=== PATIENT | male | born 1985 | race African-American/Black ===

== ENCOUNTER 2018-02-10 15:19 | Emergency (ER) | payer MEDICAID, OTHER ==
[2018-02-10] MEDS ORDERED: ONDANSETRON 4 MG/2 ML VIAL ONE (15:57)
[2018-02-10] MEDS ORDERED: NS 1,000 ML IV ONE ×2 (15:57→16:18)
[2018-02-10] MEDS ORDERED: ONDANSETRON 4 MG/2 ML VIAL IVP ONE ×2 (15:57→16:32)
[2018-02-10] MEDS ORDERED: MAG HYDROX/AL HYDROX/SIMETH 30 ML UDCUP PO ONE (16:18)
[2018-02-10] MEDS ORDERED: FAMOTIDINE 20 MG/NACL 50 ML IV ONE (16:18)
[2018-02-10] MEDS ORDERED: HYOSCYAMINE SULFATE 0.125 MG TAB PO ONE (16:18)
[2018-02-10] MEDS ORDERED: LIDOCAINE 2% VISCOUS 15 ML UDCUP PO ONE (16:18)
--- NOTE | 2018-02-10 16:21 | EDPHY ---
H & P Time Seen by Provider: 02/10/18 16:00 HPI/ROS: CHIEF COMPLAINT: Tabdominal pain HISTORY OF PRESENT ILLNESS: The patient is a 32-year-old male who presents to the emergency department with abdominal pain and vomiting starting on . Patient states his symptoms started after eating any improved but he does not think it is related. Sunday night he vomited all night. His symptoms have slowed slightly but he still has intermittent episodes of nonbloody vomiting throughout the day. No bowel movements or diarrhea. Patient has bandlike upper abdominal pain and this wraps around his back. It is moderate. It feels "like a muscle cramp."Patient has no cough or shortness of breath. It does not radiate into his chest. No fevers or chills. REVIEW OF SYSTEMS: My complete review of systems is negative except as mentioned in the HPI. Past Medical/Surgical History: Denies Social history: Patient uses alcohol and THC daily. Smoking Status: Current every day smoker Physical Exam: Vitals noted GENERAL: Mild acute distress, alert. HEENT: Eyes normal to inspection, normal pharynx, no signs of dehydration. NECK: [No thyromegaly, no lymphadenopathy, supple. RESPIRATORY: Clear to auscultation bilaterally, no rales, rhonchi or wheezing. CVS: Regular rate and rhythm, no rubs, murmurs, or gallops. ABDOMEN: Soft, nontender, nondistended, no organomegaly. Benign BACK: Normal to inspection, no CVA tenderness. SKIN: Normal color, no rash, warm, dry. No pallor. EXTREMITIES: No pedal edema, no calf tenderness, no Homans sign or cords, no joint swelling. NEURO/PSYCH: Alert and oriented, normal mood and affect, normal motor sensory exam. Constitutional: Initial Vital Signs Temperature (C) 36.8 C 02/10/18 15:24 Heart Rate 80 02/10/18 15:24 Respiratory Rate 18 02/10/18 15:24 Blood Pressure 115/84 H 02/10/18 15:24 O2 Sat (%) 99 02/10/18 15:24 O2 Delivery Mode Room Air Allergies/Adverse Reactions: shellfish Allergy (Severe, Uncoded 02/10/18 15:24) Home Medications: Medication Instructions Recorded Ondansetron Odt [Zofran Odt 4 mg 4 mg PO Q4PRN PRN #7 tab 02/10/18 (*)] Medical Decision Making - Diagnostics Imaging Results: Imaging Impressions Chest X-Ray 02/10/18 16:18 Impression: No acute pulmonary disease. ED Course/Re-evaluation: In the emergency department discussed possible etiologies with the patient. I answered all his questions. IV was placed. Patient given normal saline 1 L IV for hydration. He is given Zofran 4 mg IV for nausea. He is given Pepcid 20 mg IV for abdominal discomfort. He is given a GI cocktail. EKG shows normal sinus rhythm, normal rate, normal axis, normal intervals. There are no ST or T-wave abnormalities. EKG is normal as interpreted by me. The patient's white count is elevated 14,000. Patient's chemistry panel is notable for an elevated anion gap at 22. His creatinine is 1.0. His LFTs are normal. Lipase normal. On recheck the patient was still feeling nauseated. The patient was given Phenergan 12.5 mg IV. 1720: On recheck the patient still was feeling nauseated although better. He was noted to have an elevated white count. A CT of the abdomen pelvis was ordered. CT of the abdomen pelvis: Please refer the dictated report by Dr. Prieto. No acute disease noted. 1855: I rechecked the patient. Patient states he feels much better off the medicine but he still has mild nausea. On repeat exam is abdomen was soft, nontender nondistended. I offered him admission for further treatment and evaluation. However the patient refused. Patient was competent. He was asking questions appropriately. He was given warnings prior to leaving. He will return with worsening symptoms. Differential Diagnosis: My differential includes but is not limited to pancreatitis, cholecystitis, gastritis, hiatal hernia, small-bowel obstruction, perforation - Data Points Laboratory Results: Laboratory Results 02/10/18 16:00 02/10/18 16:00 02/10/18 02/10/18 02/10/18 16:00 16:00 16:00 WBC 14.28 10^3/uL H 10^3/uL (3.80-9.50) RBC 5.88 10^6/uL 10^6/uL (4.40-6.38) Hgb 17.4 g/dL g/dL (13.7-17.5) Hct 50.6 % % (40.0-51.0) MCV 86.1 fL fL (81.5-99.8) MCH 29.6 pg pg (27.9-34.1) MCHC 34.4 g/dL g/dL (32.4-36.7) RDW 13.9 % % (11.5-15.2) Plt Count 204 10^3/uL 10^3/uL (150-400) MPV 10.8 fL fL (8.7-11.7) Neut % (Auto) 85.7 % H % (39.3-74.2) Lymph % (Auto) 8.7 % L % (15.0-45.0) [place] % (Auto) 5.1 % % (4.5-13.0) Eos % (Auto) 0.1 % L % (0.6-7.6) Baso % (Auto) 0.1 % L % (0.3-1.7) Nucleat RBC Rel Count 0.0 % % (0.0-0.2) Absolute Neuts (auto) 12.24 10^3/uL H 10^3/uL (1.70-6.50) Absolute Lymphs (auto) 1.24 10^3/uL 10^3/uL (1.00-3.00) Absolute Monos (auto) 0.73 10^3/uL 10^3/uL (0.30-0.80) Absolute Eos (auto) 0.01 10^3/uL L 10^3/uL (0.03-0.40) Absolute Basos (auto) 0.02 10^3/uL 10^3/uL (0.02-0.10) Absolute Nucleated RBC 0.00 10^3/uL 10^3/uL (0-0.01) Immature Gran % 0.3 % % (0.0-1.1) Immature Gran # 0.04 10^3/uL 10^3/uL (0.00-0.10) PT 12.7 SEC SEC (12.0-15.0) INR 0.93 (0.83-1.16) APTT 22.4 SEC L SEC (23.0-38.0) Sodium 141 mEq/L mEq/L (135-145) Potassium 4.0 mEq/L mEq/L (3.5-5.2) Chloride 97 mEq/L mEq/L (97-110) Carbon Dioxide 22 mEq/l mEq/l (22-31) Anion Gap 22 mEq/L H mEq/L (8-16) BUN 18 mg/dL mg/dL (7-23) Creatinine 1.0 mg/dL mg/dL (0.7-1.3) Estimated GFR > 60 Glucose 134 mg/dL H mg/dL (70-100) Calcium 10.2 mg/dL mg/dL (8.5-10.4) Total Bilirubin 1.1 mg/dL mg/dL (0.1-1.4) Conjugated Bilirubin 0.6 mg/dL H mg/dL (0.0-0.5) Unconjugated Bilirubin 0.5 mg/dL mg/dL (0.0-1.1) AST 29 IU/L IU/L (17-59) ALT 41 IU/L IU/L (21-72) Alkaline Phosphatase 89 IU/L IU/L (38-126) Total Protein 8.5 g/dL H g/dL (6.3-8.2) Albumin 5.0 g/dL g/dL (3.5-5.0) Lipase 54 IU/L IU/L (23-300) Medications Given: Discontinued Medications Al Hydroxide/Mg Hydroxide (Maalox Susp) 30 ml PO ONCE ONE Stop: 02/10/18 16:19 Last Admin: 02/10/18 17:28 Dose: 30 ml Hyoscyamine Sulfate (Levsin, Hyomax-Sl) 0.25 mg PO ONCE ONE Stop: 02/10/18 16:19 Last Admin: 02/10/18 17:27 Dose: 0.25 mg Sodium Chloride (Ns) 1,000 mls @ 0 mls/hr IV ONCE ONE PRN Reason: Wide Open Stop: 02/10/18 15:58 Last Admin: 02/10/18 15:59 Dose: 1,000 mls Sodium Chloride (Ns) 1,000 mls @ 0 mls/hr IV EDNOW ONE; Wide Open PRN Reason: Protocol Stop: 02/10/18 16:19 Last Admin: 02/10/18 16:34 Dose: 1,000 mls Famotidine/Sodium Chloride (Pepcid 20 Mg (Premix)) 50 mls @ 200 mls/hr IV EDNOW ONE Stop: 02/10/18 16:32 Last Admin: 02/10/18 16:29 Dose: 50 mls Lidocaine (Lidocaine 2% Viscous) 15 ml PO ONCE ONE Stop: 02/10/18 16:19 Last Admin: 02/10/18 17:28 Dose: 15 ml Ondansetron HCl (Zofran) 4 mg IVP EDNOW ONE Stop: 02/10/18 15:58 Last Admin: 02/10/18 15:59 Dose: 4 mg Ondansetron HCl (Zofran) 4 mg IVP EDNOW ONE Stop: 02/10/18 16:33 Last Admin: 02/10/18 16:33 Dose: 4 mg Promethazine HCl (Phenergan) 12.5 mg IVP ONCE ONE Stop: 02/10/18 16:57 Last Admin: 02/10/18 17:00 Dose: 12.5 mg Departure - Departure Disposition: Home, Routine, Self-Care Clinical Impression: Abdominal pain Qualifiers: Abdominal location: upper abdomen, unspecified Qualified Code(s): R10.10 - Upper abdominal pain, unspecified Condition: Good Instructions: Abdominal Pain (ED) Additional Instructions: Return with increasing pain, repeated vomiting, fever, or any other concerns. Referrals: Scotty Gaspar, [Medical Doctor] - 2-3 days, if not improved Prescriptions: Ondansetron Odt [Zofran Odt 4 mg (*)] 4 mg PO Q4PRN PRN #7 tab PRN Reason: For Nausea & Vomiting
[2018-02-10 16:27] LABS: PLATELET COUNT 204 10^3/uL (150-400)
--- NOTE | 2018-02-10 16:35 | CPEKG ---
Heart Rate: 52 RR Interval: 1154 P-R Interval: 132 QRSD Interval: 82 QT Interval: 452 QTC Interval: 421 P [place]: 74 QRS [place]: 77 T Wave [place]: 52 EKG Severity - BORDERLINE ECG - EKG Impression: SINUS RHYTHM EKG Impression: PROBABLE LEFT ATRIAL ABNORMALITY Electronically Signed By: Arvin Avilez 12-Feb-2018 07:25:09
[2018-02-10 16:37] LABS: INR 0.93 (0.83-1.16); PROTIME(PATIENT) 12.7 SEC (12.0-15.0)
[2018-02-10] MEDS ORDERED: PROMETHAZINE HCL 25 MG/ML INJ IVP ONE (16:56)
[2018-02-10] MEDS ORDERED: IOPAMIDOL (ISOVUE-300) 100 ML BTL ONE (17:42)
[2018-02-10] MEDS ORDERED: ONDANSETRON 4MG PREPACK#2 BTL TAKEHOME ONE (19:00)
[2018-02-10 19:18] VITALS: BP 119/69
== END 2018-02-10 19:16 | disposition home or self-care (01) ==
DX: R10.10 Upper abdominal pain, unspecified (principal); E86.9 Volume depletion, unspecified; F17.200 Nicotine dependence, unspecified, uncomplicated
CPT/HCPCS: 96365; J2405; J2550; Q9967

== ENCOUNTER 2018-02-12 01:29 | Emergency (ER) | payer MEDICAID ==
[2018-02-12] MEDS ORDERED: NS 1,000 ML IV ONE ×2 (02:05→03:05)
[2018-02-12 02:12] LABS: PLATELET COUNT 166 10^3/uL (150-400)
[2018-02-12] MEDS ORDERED: ONDANSETRON 4 MG/2 ML VIAL IVP ONE (03:05)
[2018-02-12] MEDS ORDERED: HALOPERIDOL LACT 5 MG/ML INJ IVP ONE (03:05)
--- NOTE | 2018-02-12 03:17 | EDPHY ---
H & P Stated Complaint: LUQ ABD PAIN N/V Time Seen by Provider: 02/12/18 02:15 HPI/ROS: HPI The patient presents with nausea, vomiting, abdominal pain which has been present for the last several days. As he was seen in the emergency department about 1 day ago. He had fairly unremarkable workup with normal CT scan of his abdomen. His when he went home, he had ongoing nausea and vomiting. As he went to his primary care doctor's office yesterday and felt okay, however vomiting began again yesterday afternoon and has persisted until now. He has been taking Zofran 0 DT without improvement in his symptoms. His he describes clear vomitus. His pain improves after taking a hot shower. She has had 1 similar episode about 1 year ago. His abdominal pain is in the left upper quadrant, is cramping and aching in nature.. REVIEW OF SYSTEMS Constitutional: No fever, no chills. Eyes: No discharge. ENT: No sore throat. Cardiovascular: No chest pain, no palpitations. Respiratory: No cough, no shortness of breath. Gastrointestinal: See HPI Genitourinary: No hematuria. Musculoskeletal: No back pain. Skin: No rashes. Neurological: No headache. PMHx: Healthy Soc Hx: Daily marijuana user for 20 years, drinks 2-3 beers daily PHYSICAL General Appearance: Alert, no distress Eyes: Pupils equal and round no pallor or injection ENT, Mouth: Mucous membranes dry Respiratory: There are no retractions, lungs are clear to auscultation Cardiovascular: Regular rate and rhythm Gastrointestinal: Abdomen is soft and mildly diffusely tender without any rebound or guarding, no masses, bowel sounds normal Neurological: A&O, moves all extremities Skin: Warm and dry, no rashes Musculoskeletal: Neck is supple non tender Extremities: symmetrical, full range of motion Psychiatric: Patient is oriented X 3, there is no agitation Source: Patient Exam Limitations: No limitations - Personal History Current Tetanus/Diphtheria Vaccine: Yes Current Tetanus Diphtheria and Acellular Pertussis (TDAP): Yes - Medical/Surgical History Hx Asthma: No Hx Chronic Respiratory Disease: No Hx Diabetes: No Hx Cardiac Disease: No Hx Renal Disease: No Hx Cirrhosis: No Hx Alcoholism: No Hx HIV/AIDS: No Hx Splenectomy or Spleen Trauma: No Other PMH: DENIES - Social History Smoking Status: Current every day smoker Constitutional: Initial Vital Signs Temperature (C) 36.9 C 02/12/18 01:31 Heart Rate 79 02/12/18 01:31 Respiratory Rate 18 02/12/18 01:31 Blood Pressure 151/111 H 02/12/18 01:31 O2 Sat (%) 98 02/12/18 01:31 O2 Delivery Mode Room Air Allergies/Adverse Reactions: shellfish Allergy (Severe, Uncoded 02/12/18 01:33) Home Medications: Medication Instructions Recorded Ondansetron Odt [Zofran Odt 4 mg 4 mg PO Q4PRN PRN #7 tab 02/10/18 (*)] Famotidine [Pepcid 20 MG (*)] 20 mg PO BID #30 tab 02/12/18 Promethazine HCl [Phenergan 25mg 25 mg PO Q6H PRN #30 tab 02/12/18 (*)] Medical Decision Making Differential Diagnosis: This is a 32-year-old man, daily marijuana user for 20 years who presents with several days of nausea, vomiting, abdominal pain. His CT scan performed 2 days ago is unremarkable for any acute pathology. I suspect he is suffering from cannabinoid hyperemesis syndrome given his marijuana use and his symptomatic improvement with hot showers. Other possibilities include viral gastroenteritis, toxin mediated enterocolitis, pancreatitis. Is in the emergency department, basic labs were checked and did reveal leukocytosis. This is improved from 2 days ago. Other labs were unremarkable including a lipase. As he was given IV fluids, Zofran, Haldol with improvement in his symptoms. He slept for about an hour and when he woke up he felt very restless. He asked to take a shower here. I discussed with him cannabinoid hyperemesis syndrome, however he does not believe he has this. He is concerned about an ulcer. He does not have any dark or bloody stools. I offered him admission to the hospital, however I explained to him it is not certain that he will have an endoscopy as an inpatient. He said he would rather go home then then be admitted. I will discharge him with additional antiemetics, I have provided him written information about cannabinoid hyperemesis syndrome. I will refer him to Gastroenterology. - Data Points Laboratory Results: Laboratory Results 02/12/18 02:00 02/12/18 02:00 02/12/18 02/12/18 02:00 02:00 WBC 12.87 10^3/uL H 10^3/uL (3.80-9.50) RBC 5.48 10^6/uL 10^6/uL (4.40-6.38) Hgb 16.4 g/dL g/dL (13.7-17.5) Hct 47.5 % % (40.0-51.0) MCV 86.7 fL fL (81.5-99.8) MCH 29.9 pg pg (27.9-34.1) MCHC 34.5 g/dL g/dL (32.4-36.7) RDW 13.8 % % (11.5-15.2) Plt Count 166 10^3/uL 10^3/uL (150-400) MPV 10.3 fL fL (8.7-11.7) Neut % (Auto) 87.1 % H % (39.3-74.2) Lymph % (Auto) 8.6 % L % (15.0-45.0) [place] % (Auto) 3.8 % L % (4.5-13.0) Eos % (Auto) 0.1 % L % (0.6-7.6) Baso % (Auto) 0.2 % L % (0.3-1.7) Nucleat RBC Rel Count 0.0 % % (0.0-0.2) Absolute Neuts (auto) 11.21 10^3/uL H 10^3/uL (1.70-6.50) Absolute Lymphs (auto) 1.11 10^3/uL 10^3/uL (1.00-3.00) Absolute Monos (auto) 0.49 10^3/uL 10^3/uL (0.30-0.80) Absolute Eos (auto) 0.01 10^3/uL L 10^3/uL (0.03-0.40) Absolute Basos (auto) 0.02 10^3/uL 10^3/uL (0.02-0.10) Absolute Nucleated RBC 0.00 10^3/uL 10^3/uL (0-0.01) Immature Gran % 0.2 % % (0.0-1.1) Immature Gran # 0.03 10^3/uL 10^3/uL (0.00-0.10) Sodium 144 mEq/L mEq/L (135-145) Potassium 3.8 mEq/L mEq/L (3.5-5.2) Chloride 104 mEq/L mEq/L (97-110) Carbon Dioxide 24 mEq/l mEq/l (22-31) Anion Gap 16 mEq/L mEq/L (8-16) BUN 15 mg/dL mg/dL (7-23) Creatinine 0.9 mg/dL mg/dL (0.7-1.3) Estimated GFR > 60 Glucose 135 mg/dL H mg/dL (70-100) Calcium 9.5 mg/dL mg/dL (8.5-10.4) Total Bilirubin 0.8 mg/dL mg/dL (0.1-1.4) Conjugated Bilirubin 0.3 mg/dL mg/dL (0.0-0.5) Unconjugated Bilirubin 0.5 mg/dL mg/dL (0.0-1.1) AST 21 IU/L IU/L (17-59) ALT 42 IU/L IU/L (21-72) Alkaline Phosphatase 68 IU/L IU/L (38-126) Total Protein 7.6 g/dL g/dL (6.3-8.2) Albumin 4.6 g/dL g/dL (3.5-5.0) Lipase 243 IU/L IU/L (23-300) Medications Given: Discontinued Medications Al Hydroxide/Mg Hydroxide (Maalox Susp) 30 ml PO ONCE ONE Stop: 02/12/18 04:39 Last Admin: 02/12/18 04:43 Dose: 30 ml Haloperidol Lactate (Haldol Injection) 2.5 mg IVP EDNOW ONE Stop: 02/12/18 03:06 Last Admin: 02/12/18 03:16 Dose: 2.5 mg Hyoscyamine Sulfate (Levsin, Hyomax-Sl) 0.25 mg PO ONCE ONE Stop: 02/12/18 04:39 Last Admin: 02/12/18 04:43 Dose: 0.25 mg Sodium Chloride (Ns) 1,000 mls @ 0 mls/hr IV ONCE ONE PRN Reason: Wide Open Stop: 02/12/18 02:06 Last Admin: 02/12/18 02:06 Dose: 1,000 mls Sodium Chloride (Ns) 1,000 mls @ 0 mls/hr IV EDNOW ONE; Wide Open PRN Reason: Protocol Stop: 02/12/18 03:06 Last Admin: 02/12/18 03:16 Dose: 1,000 mls Lidocaine (Lidocaine 2% Viscous) 15 ml PO ONCE ONE Stop: 02/12/18 04:39 Last Admin: 02/12/18 04:43 Dose: 15 ml Ondansetron HCl (Zofran) 4 mg IVP EDNOW ONE Stop: 02/12/18 03:06 Last Admin: 02/12/18 03:16 Dose: 4 mg Departure - Departure Disposition: Home, Routine, Self-Care Clinical Impression: Abdominal pain Qualifiers: Abdominal location: left upper quadrant Qualified Code(s): R10.12 - Left upper quadrant pain Vomiting Qualifiers: Vomiting type: unspecified Vomiting Intractability: non-intractable Nausea presence: with nausea Qualified Code(s): R11.2 - Nausea with vomiting, unspecified Condition: Good Instructions: Acute Nausea and Vomiting (ED) Additional Instructions: Please return to the emergency department if your worse in any way. Please cut down on your marijuana use as I feel this may be contributing to her symptoms. Referrals: Cheyenne Hall PAC [Primary Care Provider] - As per Instructions Jn Ramesh MD [Medical Doctor] - As per Instructions Prescriptions: Famotidine [Pepcid 20 MG (*)] 20 mg PO BID #30 tab Promethazine HCl [Phenergan 25mg (*)] 25 mg PO Q6H PRN #30 tab PRN Reason: vomiting
[2018-02-12] MEDS ORDERED: LIDOCAINE 2% VISCOUS 15 ML UDCUP PO ONE (04:38)
[2018-02-12] MEDS ORDERED: MAG HYDROX/AL HYDROX/SIMETH 30 ML UDCUP PO ONE (04:38)
[2018-02-12] MEDS ORDERED: HYOSCYAMINE SULFATE 0.125 MG TAB PO ONE (04:38)
[2018-02-12] MEDS ORDERED: HYOSCYAMINE SULFATE 0.125 MG TAB ONE (04:41)
[2018-02-12] MEDS ORDERED: LIDOCAINE 2% VISCOUS 15 ML UDCUP ONE (04:41)
[2018-02-12] MEDS ORDERED: MAG HYDROX/AL HYDROX/SIMETH 30 ML UDCUP ONE (04:41)
[2018-02-12 05:34] VITALS: BP 161/89
== END 2018-02-12 05:58 | disposition home or self-care (01) ==
DX: R11.2 Nausea with vomiting, unspecified (principal); R10.12 Left upper quadrant pain; E86.9 Volume depletion, unspecified; F17.200 Nicotine dependence, unspecified, uncomplicated
CPT/HCPCS: 96374; J1630; J2405